=== PATIENT | female | born 2000 | race Caucasian/White ===

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

== ENCOUNTER 2019-09-11 10:57 | Emergency (ER) | payer BC ==
[~2019-09-11] VITALS: Ht 177.8 cm; Wt 88.5 kg
[~2019-09-11 10:57] MED LIST: OMEP20TA7 PO; ONDA4TAB11 SL; SUCR1ORA5 PO
--- NOTE | 2019-09-11 11:23 | ED Lower Extremity ---
General Chief Complaint: Lower Extremity Stated Complaint: L ANKLE INJ Nursing Triage Note: pt reports stepping in a hole less than 24 hours ago, has a lot of pain in foot. has previously fx this foot in the past. Source: patient Exam Limitations: no limitations History of Present Illness Date Seen by Provider: Sep 11, 2019 Time Seen by Provider: 11:22 Initial Comments With left ankle and foot pain after she stepped in a hole last night. Difficulty with bearing weight. Onset: just prior to arrival Severity: moderate Pain/Injury Location: left foot, left ankle Method of Injury: unknown Modifying Factors: Worse With Movement Allergies and Home Medications Allergies Coded Allergies: No Known Drug Allergies (Unverified , 05/12/18) Home Medications Omeprazole 20 Mg Tablet.dr, 20 MG PO BID Prescribed by: CROW PARKER on 05/12/18 1241 Ondansetron 4 Mg Tab.rapdis, 4 MG SL Q4H Prescribed by: CROW PARKER on 05/12/18 1241 Sucralfate 1 Gm/10 Ml Oral.susp, 1 GM PO QID 30 minutes before eating or drinking at meals and before bed. Prescribed by: CROW PARKER on 05/12/18 1241 Patient Home Medication List Home Medication List Reviewed: Yes Review of Systems Constitutional: see HPI EENTM: see HPI Respiratory: no symptoms reported Cardiovascular: no symptoms reported Genitourinary: no symptoms reported Musculoskeletal: see HPI Skin: no symptoms reported Psychiatric/Neurological: No Symptoms Reported Past Agwkbzx-Ajkkri-Nrkcis Hx Patient Social History Recent Foreign Travel: No Contact w/Someone Who Travel: No Recent Infectious Disease Expo: No Physical Abuse: No Sexual Abuse: No Seasonal Allergies Seasonal Allergies: Yes Past Medical History Surgeries: No Respiratory: No Cardiac: No Neurological: No Reproductive Disorders: No Genitourinary: No Gastrointestinal: No Musculoskeletal: No Endocrine: No HEENT: No Cancer: No Psychosocial: No Family Medical History GI Disease Physical Exam Vital Signs Vital Signs - First Documented 09/11/19 11:17 Temp 36.8 Pulse 85 Resp 16 B/P (MAP) 130/80 Pulse Ox 98 Capillary Refill : Height, Weight, BMI Height: 5'10.00" Weight: 200lbs. oz. 90.250897qr; 27.00 BMI Method:Stated General Appearance: WD/WN, no apparent distress Respiratory: no respiratory distress, no accessory muscle use Hips: bilateral hip non-tender, bilateral hip normal inspection, bilateral hip normal range of motion Legs: bilateral leg non-tender, bilateral leg normal inspection, bilateral leg normal range of motion Knees: bilateral knee non-tender, bilateral knee normal inspection, bilateral knee normal range of motion Ankles: left ankle pain, left ankle soft tissue tenderness, left ankle swelling Feet: bilateral foot non-tender, bilateral foot normal inspection, bilateral foot normal range of motion Neurologic/Psychiatric: alert, normal mood/affect, oriented x 3 Skin: normal color, warm/dry Progress/Results/Core Measures Results/Orders My Orders Orders - HIREN JADE APRN Ankle, Left, 3 Views (09/11/19 11:22) Foot, Left, 3 Views (09/11/19 11:22) Vital Signs/I&O 09/11/19 11:17 Temp 36.8 Pulse 85 Resp 16 B/P (MAP) 130/80 Pulse Ox 98 Departure Impression Primary Impression: Left ankle sprain Qualified Codes: S93.402A - Sprain of unspecified ligament of left ankle, initial encounter Disposition: 01 HOME, SELF-CARE Condition: Stable Departure-Patient Inst. Decision time for Depature: 11:54 Referrals: NO,LOCAL PHYSICIAN (PCP) Primary Care Physician Patient Instructions: Ankle Sprain (DC) Add. Discharge Instructions: Continue using her crutches until the pain subsides 2. Return to ER for any concerns 3. Follow-up with your doctor next week for recheck. All discharge instructions reviewed with patient and/or family. Voiced understanding. HIREN JADE APRN Sep 11, 2019 11:23
--- NOTE | 2019-09-11 12:02 | Diagnostic Imaging Report ---
HISTORY: Injury of the left foot and ankle, heard a pop. History of fracture in the left foot. COMPARISON: None TECHNIQUE: 3 views of the left ankle. 3 views of the left foot. FINDINGS: No acute fracture or dislocation is seen in the left ankle. Alignment appears normal. There is mild irregularity at the medial left ankle joint which may be from remote trauma. A small linear calcification is seen at the tip of the lateral malleolus, which could represent a small avulsion fracture. No significant tibiotalar joint effusion is seen. No acute fracture or dislocation is seen in the left foot. Alignment appears normal. IMPRESSION: 1. Avulsion fracture at the tip of the left ankle lateral malleolus. 2. No acute fracture is seen in the left foot. Dictated by: Dictated on workstation # [id number]
--- OUTSIDE RECORDS SUMMARY | 2019-09-11 14:48 | XMS REPORT | Continuity of Care Document ---
Author Organization Unknown Address Unknown Phone Unavailable Allergies Active Description Code Type Severity Reaction Onset Reported/Identified Relationship to Patient Clinical Status Yes No Known Drug Allergies [id number] Drug Allergy Unknown N/A 05/12/2018 Medications There is no data. Problems Date Dx Coded Attending Type Code Diagnosis Diagnosed By 05/12/2018 SUDHEER PERRY, CROW No Ot R10.13 EPIGASTRIC PAIN 05/12/2018 SUDHEER PERRY, CROW No Ot R11.2 NAUSEA WITH VOMITING, UNSPECIFIED 05/15/2018 CROW WILLARD MD Ot R10.13 EPIGASTRIC PAIN 05/15/2018 SUDHEER PERRY, CROW No Ot R11.2 NAUSEA WITH VOMITING, UNSPECIFIED Procedures There is no data. Results Test Result Range Complete blood count (CBC) with automate d white blood cell (WBC) differential - 05/12/18 07:29 Blood leukocytes automated count (number/volume) 8.4 10*3/uL 4.3-11.0 Blood erythrocytes automated count (number/volume) 4.27 10*6/uL 4.35-5.85 Venous blood hemoglobin measurement (mass/volume) 13.9 g/dL 11.5-16.0 Blood hematocrit (volume fraction) 40 % 35-52 Automated erythrocyte mean corpuscular volume 93 [ foz_us] 80-99 Automated erythrocyte mean corpuscular h emoglobin (mass per erythrocyte) 33 pg 25-34 Automated erythrocyte mean corpuscular h emoglobin concentration measurement (mass/volume) 35 g/dL 32-36 Automated erythrocyte distribution width ratio 12. 6 % 10.0- 14.5 Automated blood platelet count (count/volume) 299 10*3/uL 130-400 Automated blood platelet mean volume measurement 9.1 [foz_us] 7.4-10.4 Automated blood neutrophils/100 leukocytes 77 % 42-75 Automated blood lymphocytes/100 leukocytes 12 % 12-44 Blood monocytes/100 leukocytes 9 % 0-12 Automated blood eosinophils/100 leukocytes 1 % 0-10 Automated blood basophils/100 leukocytes 1 % 0-10 Blood neutrophils automated count (number/volume) 6.5 10*3 1.8-7.8 Blood lymphocytes automated count (number/volume) 1.0 10*3 1.0-4.0 Blood monocytes automated count (number/volume) 0. 7 10*3 0.0-1.0 Automated eosinophil count 0.1 10*3/uL 0 .0-0.3 Automated blood basophil count (count/volume) 0.1 10*3/uL 0.0-0.1 Serum or plasma choriogonadotropin (preg ramandeep test) detection - 05/12/18 07:29 Serum or plasma choriogonadotropin ( test) de tection NEGATIVE NEGATIVE Comprehensive metabolic panel - 05/12/18 07:29 Serum or plasma sodium measurement (moles/volume) 141 mmol/L 135-145 Serum or plasma potassium measurement (moles/volume) 3.7 mmol/L 3.6-5.0 Serum or plasma chloride measurement (moles/volume) 107 mmol/L 98-107 Carbon dioxide 23 mmol/L 21-32 Serum or plasma anion gap determination (moles/volume) 11 mmol/L 5-14 Serum or plasma urea nitrogen measurement (mass/volume ) 9 mg/dL 7-18 Serum or plasma creatinine measurement (mass/volume) 0.84 mg/dL 0.60-1.30 Serum or plasma urea nitrogen/creatinine mass ratio 11 NRG Serum or plasma creatinine measurement w ith calculation of estimated glomerular filtration rate > NRG Serum or plasma glucose measurement (mass/volume) 107 mg/dL 70-105 Serum or plasma calcium measurement (mass/volume) 10.0 mg/dL 8.5-10.1 Serum or plasma total bilirubin measurement (mass/volu me) 0.8 mg/dL 0.1-1.0 Serum or plasma alkaline phosphatase aiden surement (enzymatic activity/volume) 49 U/L 60-350 Serum or plasma aspartate aminotransfera se measurement (enzymatic activity/volume) 20 U/L 5-34 Serum or plasma alanine aminotransferase measurement (enzymatic activity/volume) 21 U/L 0-55 Serum or plasma protein measurement (mass/volume) 8.0 g/dL 6.4-8.2 Serum or plasma albumin measurement (mass/volume) 4.9 g/dL 3.2-4.5 Magnesium - 05/12/18 07:29 Magnesium 2.4 mg/dL 1.8-2.4 Lipase - 05/12/18 07:29 Lipase 16 U/L 8-78 Complete urinalysis with reflex to cultu re - 05/12/18 07:55 Urine color determination YELLOW NRG Urine clarity determination SLIGHTLY CLOUDY NRG Urine pH measurement by test strip 7 5-9 Specific gravity of urine by test strip 1.010 1.016-1.022 Urine protein assay by test strip, semi-quantitative 1+ NEGATIVE Urine glucose detection by automated test strip NE GATIVE NEGATIVE Erythrocytes detection in urine sediment by light micr oscopy 1+ NEGATIVE Urine ketones detection by automated test strip NE GATIVE NEGATIVE Urine nitrite detection by test strip NEGATIVE NEGATIVE Urine total bilirubin detection by test strip NEGA TIVE NEGATIVE Urine urobilinogen measurement by automated test strip (mass/volume) NORMAL NORMAL Urine leukocyte esterase detection by dipstick 1+ NEGATIVE Automated urine sediment erythrocyte cou nt by microscopy (number/high power field) NONE NRG Automated urine sediment leukocyte count by microscopy (number/high power field) RARE NRG Bacteria detection in urine sediment by light microsco py MODERATE NRG Squamous epithelial cells detection in u rine sediment by light microscopy 25-50 NRG Crystals detection in urine sediment by light microsco py NONE NRG Casts detection in urine sediment by light microscopy NONE NRG Mucus detection in urine sediment by light microscopy NEGATIVE NRG Complete urinalysis with reflex to culture NO NRG Encounters ACCT No. Visit Date/Time Discharge Status Pt. Type Provider Facility Loc./Unit Complaint [id number] 05/12/2018 07:04:00 019 12:51:00 DIS Emergency SUDHEER PERRY, CROW No Via [facility] ER VOMITING;UPPER L ABD PAIN
== END 2019-09-11 12:13 | disposition home or self-care (01) ==
LOC: EDUNIT# 10:57 → ER 10:58
DX: S93.402A Sprain of unspecified ligament of left ankle, initial encounter (principal); W17.2XXA Fall into hole, initial encounter
CPT/HCPCS: 73610; 73630; 99283; L4350